=== PATIENT | female | born 1940 | race American Indian/Alaskan Native ===

== ENCOUNTER 2016-09-13 11:49 | Outpatient (CLI) | payer MEDICARE ==
--- NOTE | 2016-09-13 12:32 | XRay Report ---
LEFT SHOULDER THREE VIEWS: 09/13/16 11:49:00 CLINICAL: Pain. Rotator cuff strain. FINDINGS: No fracture or dislocation. Mild glenohumeral joint arthritis with a small inferior humeral osteophyte. Mild acromioclavicular joint arthritis. Normal soft tissues. IMPRESSION: Mild arthritis.
== END 2016-09-13 11:50 | disposition home or self-care (01) ==
LOC: SPVIMAG 11:49
PROVIDERS: ATTEND Internal Medicine
DX: S46.012A Strain of muscle(s) and tendon(s) of the rotator cuff of left shoulder, initial encounter (principal); M13.812 Other specified arthritis, left shoulder; M25.712 Osteophyte, left shoulder; X58.XXXA Exposure to other specified factors, initial encounter; Y93.89 Activity, other specified; Y92.89 Other specified places as the place of occurrence of the external cause; Y99.8 Other external cause status

== ENCOUNTER 2018-10-17 11:03 | Outpatient (CLI) | payer MEDICARE ==
--- NOTE | 2018-10-17 15:46 | Mammography Report ---
BILATERAL DIGITAL SCREENING MAMMOGRAM with CAD: 10/17/18 11:03:00 CLINICAL: Routine screening. COMPARISON:06/23/16 FINDINGS: There are scattered areas of fibroglandular density.A pacemaker obscures the upper portion of the left breast on MLO view. A few scattered bilateral benign calcifications. No mass, architectural distortion or suspicious calcifications. IMPRESSION: No mammographic evidence of malignancy. BI-RADS CATEGORY: 2 -- Benign RECOMMENDATION: Routine mammographic screening in one year. COMMENT: Patient follow-up letters are generated by our [employer] application.
== END 2018-10-17 11:04 | disposition home or self-care (01) ==
LOC: SPVWC 11:03
PROVIDERS: ATTEND Internal Medicine
DX: Z12.31 Encounter for screening mammogram for malignant neoplasm of breast (principal)
CPT/HCPCS: 77067

== ENCOUNTER 2020-08-31 10:09 | Outpatient (CLI) | payer MEDICARE ==
--- NOTE | 2020-09-01 08:56 | Mammography Report ---
DIGITAL SCREENING MAMMOGRAM, 08/31/2020 CLINICAL INFORMATION / INDICATION: Routine screening mammography. SCREENING MAMMO TECHNIQUE: Digital bilateral 2D mammography was obtained in the craniocaudal and mediolateral obliqu e projections. COMPARISON: Prior mammogram 10/17/2018 FINDINGS: Breast Density: There are scattered areas of fibroglandular density. No dominant mass, suspicious calcifications, or architectural distortion in either breast. There has been no significant change compared with the prior examination. A cardiac device overlies t he left axilla. IMPRESSION: No mammographic evidence of malignancy. Follow up recommendation: Routine yearly BI-RADS Category 1: Negative. A "normal" or negative report should not discourage follow up or biopsy of a clinically significant f inding. A written summary of these findings will be mailed to the patient. The patient will be entered into a mammography reporting system which will generate a reminder letter for the patient's next appointmen t at the appropriate interval. The [employer] recommends yearly mammograms starting at age 40 and continuing as l sruthi as a woman is in good health. Breast MRI is recommended for women with an approximate 20-25% or greater lifetime risk of breast cancer, including women with a strong family history of breast or ova jabier cancer or who have been treated for Hodgkin's disease. Signer Name: Juanita Vernon MD Signed: 09/01/2020 8:51 AM Workstation Name: [id number]
== END 2020-08-31 10:10 | disposition home or self-care (01) ==
LOC: SPVWC 10:09
PROVIDERS: ATTEND Internal Medicine
DX: Z12.31 Encounter for screening mammogram for malignant neoplasm of breast (principal)
CPT/HCPCS: 77067